=== PATIENT | male | born 1990 | race African-American/Black ===

== ENCOUNTER 2017-03-05 00:25 | Emergency (ER) | payer OTHER ==
[~2017-03-05] VITALS: Ht 188 cm; Wt 73.0 kg
[2017-03-05 00:30] VITALS: BP 142/67; PULSE 86; RESP 18; TEMP 98.4; O2SAT 98
[2017-03-05 03:12] VITALS: BP 117/66; PULSE 75; RESP 18; O2SAT 99
--- NOTE | 2017-03-05 03:13 | PD ---
HPI Chief Complaint: Complaint Time Seen by Provider: 03:10 Travel History International Travel<30 days: No Contact w/Intl Traveler<30days: No Traveled to known affect area: No History of Present Illness HPI 26-year-old male presents to the emergency department for complaint of left testicular pain and high riding left testicle. Symptoms began just prior to arrival to the emergency department. Onset reportedly after taking a shower. Symptoms have improved some but still complains of discomfort. Patient denies any trauma to the groin. No dysuria frequency urgency or penile discharge. Patient is sexually active with one partner and uses condom. Patient denies any abdominal pain nausea or vomiting. PFSH Past Medical History Narrative Medical Negative past medical history negative surgical history occasional alcohol use no tobacco use nursing notes reviewed Medical History: Denies Significant Hx Diminished Hearing: No Tetanus Vaccination: Unknown Influenza Vaccination: No Social History Alcohol Use: Yes (Socially) Tobacco Use: No Substance Use: No Allergies-Medications (Allergen,Severity, Reaction): Coded Allergies: No Known Allergies (Unverified , 03/05/17) Reported Meds & Prescriptions Reported Meds & Active Scripts Active No Active Prescriptions or Reported Medications Review of Systems Except as stated in HPI: all other systems reviewed are Neg General / Constitutional: No: Fever, Chills HENT: No: Congestion Cardiovascular: No: Chest Pain or Discomfort Respiratory: No: Shortness of Breath Gastrointestinal: No: Abdominal Pain Genitourinary: Positive: Other (groin pain), No: Dysuria, Decreased Urinary Output, Discharge Musculoskeletal: No: Myalgias, Arthralgias Skin: No Rash Neurologic: No: Weakness Psychiatric: No: Anxiety Hematologic/Lymphatic: No: Lymph Node Enlargement Physical Exam Narrative GENERAL: SKIN: Warm and dry. HEAD: Normocephalic. EYES: No scleral icterus. No injection or drainage. NECK: Supple, trachea midline. No JVD or lymphadenopathy. CARDIOVASCULAR: Regular rate and rhythm without murmurs, gallops, or rubs. RESPIRATORY: Breath sounds equal bilaterally. No accessory muscle use. GASTROINTESTINAL: Abdomen soft, non-tender, nondistended. : Circumcised male bilaterally descended testicles positive cremasteric reflex no tenderness to palpation over the cord and no palpable mass or drainage no blue dot sign. No mass. No inguinal hernia. Positive cremasteric reflex. MUSCULOSKELETAL: No cyanosis, or edema. BACK: Nontender without obvious deformity. No CVA tenderness. Data Data Last Documented VS Vital Signs Date Time Temp Pulse Resp B/P Pulse Ox O2 Delivery O2 Flow Rate FiO2 03/05/17 03:12 75 18 117/66 99 Room Air 03/05/17 00:30 98.4 Orders Us Testicles W Doppler (03/05/17 ) Urinalysis - C+S If Indicated (03/05/17 03:10) Labs Laboratory Tests Test 03/05/17 03:10 Urine Color YELLOW Urine Turbidity CLEAR Urine pH 5.5 Urine Specific [place] 1.017 Urine Protein NEG mg/dL Urine Glucose (UA) NEG mg/dL Urine Ketones NEG mg/dL Urine Occult Blood NEG Urine Nitrite NEG Urine Bilirubin NEG Urine Leukocyte Esterase NEG Urine RBC 0-3 /hpf Urine WBC 3-5 /hpf Urine Squamous Epithelial 0-5 /hpf Cells Urine Mucus OCC /lpf Microscopic Urinalysis Comment CULT NOT INDICATED MDM Medical Decision Making Medical Screen Exam Complete: Yes Emergency Medical Condition: Yes Medical Record Reviewed: Yes Interpretation(s) UA: wnl Last Impressions Scrotum Ultrasound 03/05/17 0000 Signed Impressions: Service Date/Time: Sunday, March 05, 2017 03:38 - CONCLUSION: 1. Right intratesticular cyst, 1.3 mm. 2. Bilateral varicoceles. 3. Small left hydrocele. Jacky Keating MD Vital Signs Date Time Temp Pulse Resp B/P Pulse Ox O2 Delivery O2 Flow Rate FiO2 03/05/17 03:12 75 18 117/66 99 Room Air 03/05/17 00:30 98.4 86 18 142/67 98 Differential Diagnosis Testicular pain, testicular torsion, epididymoorchitis, hydrocele, varicocele, urethritis, UTI Narrative Course Patient with bilaterally descended testicles complaining of high riding left testicle just prior to arrival to the emergency department with 3/10 in intensity of discomfort concern for possible intermittent torsion although will assess as well for epididymitis UTI no evidence for inguinal hernia. Ultrasound ordered. Ultrasound reveals good bilateral flow to both testicles patient is identified to have bilateral hydrocele and small left varicocele. Patient is asymptomatic at this time is stable for outpatient management with close follow-up with urologist. Patient given prescription for nonsteroidal anti-inflammatory use as needed and is to return to the emergency for for any concerns. Diagnosis Primary Impression: Hydrocele in adult Additional Impression: Left varicocele Referrals: Urologist call for appointment [employer] Urologgist: Dr Oseguera Patient Instructions: General Instructions Additional Instructions: Follow-up with urologist May take ibuprofen as prescribed as needed Return to the emergency department for any concerns or change in condition Med/Other Pt SpecificInfo: Prescription(s) given Scripts Ibuprofen 800 Mg [id number] Mg PO Q8H PRN (PAIN GREATER THAN 5) #12 TAB Ref 0 Prov:Adrianne Andino MD 03/05/17 Disposition: 01 DISCHARGE HOME Condition: Stable Adrianne Andino MD Mar 05, 2017 03:13
[2017-03-05 03:39] LABS: BLOOD, URINE NEG (NEG); GLUCOSE,URINE NEG (NEG); KETONE, URINE NEG (NEG); NITRITE,URINE NEG (NEG); PH, URINE 5.5 (5.0-8.5)
[2017-03-05 03:52] LABS: SQUAMOUS EPITHELIAL CELL URINE 0-5 /hpf (0-5); URINE COLOR YELLOW (YELLW/STRAW)
[2017-03-05 03:53] LABS: COMMENT (UR) CULT NOT INDICATED; CULTURE IF INDICATED CULT NOT INDICATED; MUCUS URINE OCC /lpf (OCC); RBC, URINE 0-3 /hpf (0-3)
--- NOTE | 2017-03-05 04:03 | RADRPT ---
EXAM DATE/TIME: 03/05/2017 03:38 [facility] COMPARISON: No previous studies available for comparison. INDICATIONS : Left testicle and groin pain. MEDICAL HISTORY : Left testicle and groin pain. SURGICAL HISTORY : Left ankle surgery. ENCOUNTER: Initial ACUITY: 1 day PAIN SCORE: 3/10 LOCATION: Bilateral testicle. MEASUREMENTS: RIGHT TESTICLE: 4.1 x 3.0 x 2.1cm LEFT TESTICLE: 3.4 x 2.7 x 2.1cm FINDINGS: RIGHT TESTICLE: Homogeneous echotexture. A 1.3 mm cyst lower pole right testicle. Blood flow is symmetric and within normal limits. No hydrocele. Epididymis is within normal limits. Small varicocele. LEFT TESTICLE: Homogeneous echotexture without intra or extratesticular mass. Blood flow is symmetric and within no rmal limits. Small left hydrocele. Epididymis is within normal limits. Small varicocele. SCROTUM: Within normal limits. CONCLUSION: 1. Right intratesticular cyst, 1.3 mm. 2. Bilateral varicoceles. 3. Small left hydrocele. Jacky Keating MD on March 05, 2017 at 4:00 Board Certified Radiologist. This report was verified electronically.
[2017-03-05] MEDS ORDERED: IBUP800T23 PO (04:13)
[2017-03-05 04:40] VITALS: BP 121/60
== END 2017-03-05 04:47 | disposition home or self-care (01) ==
LOC: PHED 00:25
DX: N43.3 Hydrocele, unspecified (principal); I86.1 Scrotal varices
CPT/HCPCS: 76870; 81001; 93975; 99284